=== PATIENT | male | born 1985 | race Caucasian/White ===

== ENCOUNTER 2021-01-02 06:07 | Emergency (ER) | payer OTHER, SELFPAY ==
[2021-01-02 06:18] VITALS: BP 144/94; PULSE 90; RESP 20; TEMP 37.2; O2SAT 97; BMI 35.0
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
== END 2021-01-02 07:59 | disposition home or self-care (01) ==
PROVIDERS: Emergency Provider Emergency Medicine
DX: S70.12XA Contusion of left thigh, initial encounter (principal); V89.2XXA Person injured in unspecified motor-vehicle accident, traffic, initial encounter; Y93.89 Activity, other specified; Y92.410 Unspecified street and highway as the place of occurrence of the external cause; Y99.9 Unspecified external cause status
CPT/HCPCS: 99283; 99284